=== PATIENT | female | born 1955 | race Caucasian/White ===

== ENCOUNTER 2017-10-04 19:18 | Emergency (ER) | payer OTHER ==
[~2017-10-04] VITALS: Ht 149.9 cm; Wt 70.0 kg
[2017-10-04] MEDS ORDERED: IOHEXOL 350 MG/ML 10 ML VIAL (for RAD DIAG) IVCONTRAST ONE (19:19)
[2017-10-04 19:40] VITALS: BP 164/90; PULSE 112; RESP 16; TEMP 98.7; O2SAT 97
[2017-10-04] MEDS ORDERED: NOVOLOGMXP SQ (20:55)
[2017-10-04] MEDS ORDERED: AMLO2.5T PO (20:55)
[2017-10-04] MEDS ORDERED: GABA300C5 PO (20:55)
[2017-10-04] MEDS ORDERED: GABA100C4 PO (20:55)
[2017-10-04] MEDS ORDERED: LOSA25TA PO (20:55)
--- NOTE | 2017-10-04 21:19 | PD ---
HPI Chief Complaint: Abdominal Pain Time Seen by Provider: 21:13 Travel History International Travel<30 days: No Contact w/Intl Traveler<30days: No Traveled to known affect area: No History of Present Illness HPI 61 YO F with PMH of HTN, DM presents to the ED for evaluation of 3 day history of nausea, anorexia and right lower quadrant abdominal pain. Sudden onset. Pain described as sharp, rated 10/10, waxing and waning. Patient states that the pain started approximately one week ago, lasted for one day then resolved. She denies diarrhea, endorses well formed, nonbloody bowel movement today. She denies history of abdominal surgery. She denies sick contacts. She states that she just came from [place] yesterday. She is primarily Nepalese- speaking. There are family members at bedside. 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 PFSH Past Medical History Diabetes: Yes Patient Takes Glucophage: No Diminished Hearing: No Tetanus Vaccination: Unknown Influenza Vaccination: Yes Past Surgical History Surgical History: No Previous Surgery Social History Alcohol Use: No Tobacco Use: No Substance Use: No Allergies-Medications (Allergen,Severity, Reaction): Coded Allergies: No Known Allergies (Unverified , 10/04/17) Reported Meds & Prescriptions Reported Meds & Active Scripts Active Zofran Odt (Ondansetron Odt) 4 Mg Tab 4 Mg SL Q6HR PRN Reported Novolog Mix 70-30 Inj (Insulin Aspart Prota 70%/Aspart 30%) 1,000 Unit/10 Ml Vial 1 Units SQ Gabapentin 300 Mg Cap 300 Mg PO BID Gabapentin 100 Mg Cap 100 Mg PO BID Amlodipine (Amlodipine Besylate) 2.5 Mg Tab 2.5 Mg PO DAILY Losartan (Losartan Potassium) 25 Mg Tab 12.5 Mg PO DAILY Review of Systems Except as stated in HPI: all other systems reviewed are Neg Physical Exam Narrative GENERAL: Well-nourished, well-developed obese female in no acute distress. SKIN: Focused skin assessment warm/dry. HEAD: Normocephalic. EYES: No scleral icterus. No injection or drainage. NECK: Supple, trachea midline. No JVD or lymphadenopathy. CARDIOVASCULAR: Regular rate and rhythm without murmurs, gallops, or rubs. RESPIRATORY: Breath sounds clear and equal bilaterally. No accessory muscle use. GASTROINTESTINAL: Abdomen soft, mildly distended, tender to palpation in the right lower quadrant. Lee sign negative. Active bowel sounds. MUSCULOSKELETAL: No cyanosis, or edema. BACK: Nontender without obvious deformity. No CVA tenderness. Data Data Last Documented VS Vital Signs Date Time Temp Pulse Resp B/P (MAP) Pulse Ox O2 Delivery O2 Flow Rate FiO2 10/05/17 01:41 10/04/17 22:03 16 96 Room Air 10/04/17 22:03 111 10/04/17 19:40 98.7 Orders Orders Complete Blood Count With Diff (10/04/17 21:36) Comprehensive Metabolic Panel (10/04/17 21:36) Lipase (10/04/17 21:36) Lactic Acid (10/04/17 21:36) Prothrombin Time / Inr (Pt) (10/04/17 21:36) Act Partial Throm Time (Ptt) (10/04/17 21:36) Urinalysis - C+S If Indicated (10/04/17 21:36) Ct Abd/Pel W Iv Contrast(Rout) (10/04/17 21:36) Iv Access Insert/Monitor (10/04/17 21:36) Ecg Monitoring (10/04/17 21:36) Oximetry (10/04/17 21:36) Morphine Inj (Morphine Inj) (10/04/17 21:45) Ondansetron Inj (Zofran Inj) (10/04/17 21:45) Sodium Chlor 0.9% 1000 Ml Inj (Ns 1000 M (10/04/17 21:36) Sodium Chloride 0.9% Flush (Ns Flush) (10/04/17 21:45) Iohexol 350 Inj (Omnipaque 350 Inj) (10/04/17 19:19) Ondansetron Inj (Zofran Inj) (10/05/17 01:00) Ed Discharge Order (10/05/17 01:07) Labs Laboratory Tests Test 10/04/17 21:42 10/04/17 21:52 White Blood Count 13.2 TH/MM3 Red Blood Count 5.28 MIL/MM3 Hemoglobin 14.4 GM/DL Hematocrit 43.6 % Mean Corpuscular Volume 82.6 FL Mean Corpuscular Hemoglobin 27.3 PG Mean Corpuscular Hemoglobin Concent 33.1 % Red Cell Distribution Width 14.2 % Platelet Count 267 TH/MM3 Mean Platelet Volume 8.3 FL Neutrophils (%) (Auto) 74.7 % Lymphocytes (%) (Auto) 18.9 % Monocytes (%) (Auto) 5.9 % Eosinophils (%) (Auto) 0.3 % Basophils (%) (Auto) 0.2 % Neutrophils # (Auto) 9.8 TH/MM3 Lymphocytes # (Auto) 2.5 TH/MM3 Monocytes # (Auto) 0.8 TH/MM3 Eosinophils # (Auto) 0.0 TH/MM3 Basophils # (Auto) 0.0 TH/MM3 CBC Comment DIFF FINAL Differential Comment Prothrombin Time 10.0 SEC Prothromb Time International Ratio 1.0 RATIO Activated Partial Thromboplast Time 23.3 SEC Urine Color YELLOW Urine Turbidity CLEAR Urine pH 5.5 Urine Specific [place] 1.020 Urine Protein TRACE mg/dL Urine Glucose (UA) 1000 mg/dL Urine Ketones 10 mg/dL Urine Occult Blood NEG Urine Nitrite NEG Urine Bilirubin NEG Urine Urobilinogen LESS THAN 2.0 MG/DL Urine Leukocyte Esterase NEG Urine RBC 1 /hpf Urine WBC 3 /hpf Urine Squamous Epithelial Cells 1 /hpf Urine Transitional Epithelial Cells <1 /hpf Urine Bacteria RARE /hpf Urine Hyaline Casts 3 /lpf Urine Mucus FEW /lpf Microscopic Urinalysis Comment CULT NOT INDICATED Blood Urea Nitrogen 15 MG/DL Creatinine 1.12 MG/DL Random Glucose 310 MG/DL Total Protein 9.0 GM/DL Albumin 4.2 GM/DL Calcium Level 9.7 MG/DL Alkaline Phosphatase 124 U/L Aspartate Amino Transf (AST/SGOT) 21 U/L Alanine Aminotransferase (ALT/SGPT) 30 U/L Total Bilirubin 0.7 MG/DL Sodium Level 136 MEQ/L Potassium Level 4.1 MEQ/L Chloride Level 100 MEQ/L Carbon Dioxide Level 26.0 MEQ/L Anion Gap 10 MEQ/L Estimat Glomerular Filtration Rate 50 ML/MIN Lipase 90 U/L Lactic Acid Level 1.3 mmol/L MDM Medical Decision Making Medical Screen Exam Complete: Yes Emergency Medical Condition: Yes Differential Diagnosis Appendicitis versus gastroenteritis versus bowel obstruction versus cholecystitis versus other Narrative Course 61 YO F with PMH of HTN, DM presents to the ED for evaluation of 3 day history of nausea, anorexia and right lower quadrant abdominal pain. Sudden onset. Pain described as sharp, rated 10/10, waxing and waning. Patient states that the pain started approximately one week ago, lasted for one day then resolved. She denies diarrhea, endorses well formed, nonbloody bowel movement today. She denies history of abdominal surgery. She denies sick contacts. She states that she just came from [place] yesterday. Temp 98.7, Heart rate 110, BP 164/90 on presentation. On exam this is an obese female in no acute distress. She does have tenderness in the right lower quadrant but the exam is otherwise unremarkable. The patient was administered 1 L normal saline, 4 mg Zofran, 4 mg morphine. CBC: WBC 13.2, hemoglobin 14.4. INR 1. CMP: BUN 15, creatinine 1.12. Glucose 310. Lactic acid 1.3. UA: No culture indicated. CT abdomen and pelvis pending. Patient signed out to Dr. John at end of shift. Please see her note for disposition. Scripts Ondansetron Odt (Zofran Odt) 4 Mg Tab 4 MG SL Q6HR Y for Nausea/Vomiting, #7 TAB 0 Refills Prov: Candace John MD 10/05/17 Nancy Mccoy Oct 04, 2017 21:19
[2017-10-04] MEDS ORDERED: SODIUM CHLOR 0.9% 1000 ML INJ 1,000 ML IV SCH (21:36)
[2017-10-04] MEDS ORDERED: SODIUM CHLORIDE 0.9% FLUSH 10 ML FLUSH IV FLUSH PRN (21:45)
[2017-10-04] MEDS ORDERED: MORPHINE SULFATE 4 MG/ML INJ IV PUSH ONE (21:45)
[2017-10-04] MEDS ORDERED: ONDANSETRON HCL 4 MG/2 ML VIAL IVP ONE (21:45)
[2017-10-04 22:03] VITALS: BP 169/79; PULSE 111; RESP 14; RESP 16; O2SAT 96
[2017-10-04 22:32] LABS: AUTOMATED NEUTROPHIL # 9.8 TH/MM3 (1.8-7.7); BASOPHIL % 0.2 % (0.0-2.0); EOSINOPHIL % 0.3 % (0.0-4.0); HEMATOCRIT 43.6 % (35.0-46.0); HEMOGLOBIN 14.4 GM/DL (11.6-15.3); LYMPH % 18.9 % (9.0-44.0); LYMPHOCYTE # 2.5 TH/MM3 (1.0-4.8); MEAN CELL VOLUME 82.6 FL (80.0-100.0); MEAN CORPUSCULAR HEMOGLOBIN 27.3 PG (27.0-34.0); MEAN CORPUSCULAR HGB CONC 33.1 % (32.0-36.0); MEAN PLATELET VOLUME 8.3 FL (7.0-11.0); MONO % 5.9 % (0.0-8.0); MONOCYTE # 0.8 TH/MM3 (0-0.9); NEUT % 74.7 % (16.0-70.0); PLATELET COUNT 267 TH/MM3 (150-450); RED BLOOD COUNT 5.28 MIL/MM3 (4.00-5.30); RED CELL DISTRIBUTION WIDTH 14.2 % (11.6-17.2); WHITE BLOOD COUNT 13.2 TH/MM3 (4.0-11.0)
[2017-10-04 22:37] LABS: BACTERIA, URINE RARE /hpf; BILIRUBIN, URINE NEG (NEG); BLOOD, URINE NEG (NEG); GLUCOSE,URINE 1000 mg/dL (NEG); HYALINE CAST, URINE 3 /lpf (RARE); KETONE, URINE 10 mg/dL (NEG); MUCUS URINE FEW /lpf (OCC); NITRITE,URINE NEG (NEG); PH, URINE 5.5 (5.0-8.5); SQUAMOUS EPITHELIAL CELL URINE 1 /hpf (0-5); TRANSITIONAL EPI CELLS, URINE <1 /hpf; URINE COLOR YELLOW (YELLW/STRAW); URINE LEUKOCYTE ESTERASE NEG (NEG)
[2017-10-04 23:08] LABS: ALBUMIN 4.2 GM/DL (3.4-5.0); AST (GOT) 21 U/L (15-37); BLOOD UREA NITROGEN 15 MG/DL (7-18); CALCIUM 9.7 MG/DL (8.5-10.1); CHLORIDE 100 MEQ/L (98-107); CREATININE 1.12 MG/DL (0.50-1.00); GLOMERULAR FILTRATION RATE 50 ML/MIN (>89); GLUCOSE,RANDOM 310 MG/DL (74-106); SODIUM (NA) 136 MEQ/L (136-145)
[2017-10-04 23:11] LABS: ALKALINE PHOSPHATASE 124 U/L (45-117); ALT (GPT) 30 U/L (10-53); TOTAL BILIRUBIN ADULT 0.7 MG/DL (0.2-1.0)
--- NOTE | 2017-10-05 00:43 | RADRPT ---
EXAM DATE/TIME: 10/05/2017 00:22 This report includes an Addendum and supersedes previous reports for this exam. [facility] COMPARISON: No previous studies available for comparison. INDICATIONS : Abdomen pain with nausea past 3 days. IV CONTRAST: 95 cc Omnipaque 350 (iohexol) IV ORAL CONTRAST: No oral contrast ingested. RADIATION DOSE: 11.89 CTDIvol (mGy) MEDICAL HISTORY : Diabetes mellitus type 2. SURGICAL HISTORY : None. ENCOUNTER: Initial ACUITY: 3 days PAIN SCALE: 8/10 LOCATION: Bilateral abdomen TECHNIQUE: Volumetric scanning of the abdomen and pelvis was performed. Using automated exposure control and ad justment of the mA and/or kV according to patient size, radiation dose was kept as low as reasonably achievable to obtain optimal diagnostic quality images. DICOM format image data is available electro nically for review and comparison. FINDINGS: LOWER LUNGS: Tiny calcified granuloma within the left lung base. Bibasilar scarring. LIVER: Homogeneous density without lesion. There is no dilation of the biliary tree. Small partially calcif ied gallstones within an otherwise normal-appearing gallbladder. SPLEEN: Normal size without lesion. PANCREAS: Within normal limits. KIDNEYS: Normal in size and shape. There is no stone or hydronephrosis. A 1.3 cm fat containing lesion is see n involving the lateral midpole the right kidney. ADRENAL GLANDS: Within normal limits. VASCULAR: There is no aortic aneurysm. BOWEL/MESENTERY: The stomach, small bowel, and colon demonstrate no acute abnormality. There is no free intraperitone al air or fluid. Scattered colonic diverticuli without acute inflammation. ABDOMINAL WALL: Within normal limits. RETROPERITONEUM: There is no lymphadenopathy. BLADDER: No wall thickening or mass. REPRODUCTIVE: Within normal limits. INGUINAL: There is no lymphadenopathy or hernia. MUSCULOSKELETAL: A degenerative lumbar spine. CONCLUSION: 1. No acute abnormality. 2. Colonic diverticulosis. 3. Cholelithiasis. 4. 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 Pradip Ross Jr., MD on October 05, 2017 at 0:39 Board Certified Radiologist. This report was verified electronically. ADDENDUM: The appendix is seen and normal by CT criteria. Pradip Ross Jr., MD on October 05, 2017 at 1:01 Board Certified Radiologist. This report was verified electronically.
[2017-10-05] MEDS ORDERED: ONDANSETRON HCL 4 MG/2 ML VIAL IV ONE (01:00)
[2017-10-05] MEDS ORDERED: ZOFR4TAB3 SL (01:05)
--- NOTE | 2017-10-05 01:07 | PD ---
Data Data Last Documented VS Vital Signs Date Time Temp Pulse Resp B/P (MAP) Pulse Ox O2 Delivery O2 Flow Rate FiO2 10/04/17 22:03 16 96 Room Air 10/04/17 22:03 111 169/79 (109) 10/04/17 19:40 98.7 Orders Orders Complete Blood Count With Diff (10/04/17 21:36) Comprehensive Metabolic Panel (10/04/17 21:36) Lipase (10/04/17 21:36) Lactic Acid (10/04/17 21:36) Prothrombin Time / Inr (Pt) (10/04/17 21:36) Act Partial Throm Time (Ptt) (10/04/17 21:36) Urinalysis - C+S If Indicated (10/04/17 21:36) Ct Abd/Pel W Iv Contrast(Rout) (10/04/17 21:36) Iv Access Insert/Monitor (10/04/17 21:36) Ecg Monitoring (10/04/17 21:36) Oximetry (10/04/17 21:36) Morphine Inj (Morphine Inj) (10/04/17 21:45) Ondansetron Inj (Zofran Inj) (10/04/17 21:45) Sodium Chlor 0.9% 1000 Ml Inj (Ns 1000 M (10/04/17 21:36) Sodium Chloride 0.9% Flush (Ns Flush) (10/04/17 21:45) Iohexol 350 Inj (Omnipaque 350 Inj) (10/04/17 19:19) Ondansetron Inj (Zofran Inj) (10/05/17 01:00) Labs Laboratory Tests Test 10/04/17 21:42 10/04/17 21:52 White Blood Count 13.2 TH/MM3 Red Blood Count 5.28 MIL/MM3 Hemoglobin 14.4 GM/DL Hematocrit 43.6 % Mean Corpuscular Volume 82.6 FL Mean Corpuscular Hemoglobin 27.3 PG Mean Corpuscular Hemoglobin Concent 33.1 % Red Cell Distribution Width 14.2 % Platelet Count 267 TH/MM3 Mean Platelet Volume 8.3 FL Neutrophils (%) (Auto) 74.7 % Lymphocytes (%) (Auto) 18.9 % Monocytes (%) (Auto) 5.9 % Eosinophils (%) (Auto) 0.3 % Basophils (%) (Auto) 0.2 % Neutrophils # (Auto) 9.8 TH/MM3 Lymphocytes # (Auto) 2.5 TH/MM3 Monocytes # (Auto) 0.8 TH/MM3 Eosinophils # (Auto) 0.0 TH/MM3 Basophils # (Auto) 0.0 TH/MM3 CBC Comment DIFF FINAL Differential Comment Prothrombin Time 10.0 SEC Prothromb Time International Ratio 1.0 RATIO Activated Partial Thromboplast Time 23.3 SEC Urine Color YELLOW Urine Turbidity CLEAR Urine pH 5.5 Urine Specific [place] 1.020 Urine Protein TRACE mg/dL Urine Glucose (UA) 1000 mg/dL Urine Ketones 10 mg/dL Urine Occult Blood NEG Urine Nitrite NEG Urine Bilirubin NEG Urine Urobilinogen LESS THAN 2.0 MG/DL Urine Leukocyte Esterase NEG Urine RBC 1 /hpf Urine WBC 3 /hpf Urine Squamous Epithelial Cells 1 /hpf Urine Transitional Epithelial Cells <1 /hpf Urine Bacteria RARE /hpf Urine Hyaline Casts 3 /lpf Urine Mucus FEW /lpf Microscopic Urinalysis Comment CULT NOT INDICATED Blood Urea Nitrogen 15 MG/DL Creatinine 1.12 MG/DL Random Glucose 310 MG/DL Total Protein 9.0 GM/DL Albumin 4.2 GM/DL Calcium Level 9.7 MG/DL Alkaline Phosphatase 124 U/L Aspartate Amino Transf (AST/SGOT) 21 U/L Alanine Aminotransferase (ALT/SGPT) 30 U/L Total Bilirubin 0.7 MG/DL Sodium Level 136 MEQ/L Potassium Level 4.1 MEQ/L Chloride Level 100 MEQ/L Carbon Dioxide Level 26.0 MEQ/L Anion Gap 10 MEQ/L Estimat Glomerular Filtration Rate 50 ML/MIN Lipase 90 U/L Lactic Acid Level 1.3 mmol/L [facility] Medical Record Reviewed: Yes Supervised Visit with ANGÉLICA: No Narrative Course During the course of the patient's emergency department visit, the patient's history, examination, and differential diagnosis were reviewed with the patient. The patient was placed on a court monitor with oximetry and frequent blood pressure monitoring. The patient had IV access obtained and blood work sent for analysis. The patient's case was checked out to me by Nancy. Please see her complete history and physical. The patient's case was checked out to me at the conclusion of her shift. The patient presented with abdominal pain and nausea. The patient was initially provided normal saline 1 L IV fluid bolus, morphine for pain, Zofran for nausea. The patient's laboratory studies were reviewed and remarkable for a white count of 13.2, hemoglobin 14.4, platelets 267 with neutrophils 74.7, CMP is remarkable for creatinine of 1.12, glucose 310, alk phos 124, total protein 9.0 , lipase 90, lactic acid 1.3, PT 10, PTT 23.3, urinalysis shows 1000 glucose 10 ketones otherwise unremarkable, culture not indicated. 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 There was no mention of the patient's appendix being visualized, therefore I did call Dr. Ross the reading radiologist and spoke to him at 1 AM. He reviewed the patient's CT scan again and was able to identify the appendix and there was no evidence of inflammation. The patient's symptoms could be related to biliary colic, versus a viral syndrome. The patient will be discharged home with a prescription for Zofran for nausea. The patient was instructed to follow-up with her primary care physician regarding this emergency department visit. The patient is resting comfortably and feels better, is alert and in no distress. The patient's results and examination findings were discussed with the patient. The repeat examination is unremarkable and benign. The history, exam, diagnostic testing, and current condition do not suggest any significant pathology to warrant further testing, continued ED treatment, admission, or surgical evaluation at this point. The vital signs have been stable. The patient does not have uncontrollable pain, intractable vomiting, or other significant symptoms. The patient's condition is stable and appropriate for discharge. The patient will pursue further outpatient evaluation with a primary care physician or other designated or consulting physician as indicated in the discharge instructions. The patient expressed understanding and was agreeable with this plan. Diagnosis Primary Impression: Abdominal pain Qualified Codes: R10.9 - Unspecified abdominal pain Additional Impression: Nausea Referrals: Primary Care Physician 3 days Patient Instructions: Abdominal Pain (ED), General Instructions Med/Other Pt SpecificInfo: Prescription(s) given Scripts Ondansetron Odt (Zofran Odt) 4 Mg Tab 4 MG SL Q6HR Y for Nausea/Vomiting, #7 TAB 0 Refills Prov: Candace John MD 10/05/17 Disposition: 01 DISCHARGE HOME Condition: Stable Candace John MD Oct 05, 2017 01:07
== END 2017-10-05 01:41 | disposition home or self-care (01) ==
LOC: NEPE 19:18
DX: R10.31 Right lower quadrant pain (principal); R11.0 Nausea; E11.9 Type 2 diabetes mellitus without complications; I10 Essential (primary) hypertension; Z79.4 Long term (current) use of insulin
CPT/HCPCS: 74177; 80053; 81001; 83605; 83690; 85025; 85610; 85730; 96361; 96374; 96375; 99284; J2270; J2405; J7030; Q9967